=== PATIENT | male | born 1965 | race Caucasian/White ===

== ENCOUNTER 2020-12-17 16:29 | Emergency (ER) | payer BC ==
[~2020-12-17] VITALS: Ht 167.6 cm; Wt 90.7 kg
== END 2020-12-17 17:38 | disposition home or self-care (01) ==
LOC: ED 16:29
DX: S01.312A Laceration without foreign body of left ear, initial encounter (principal); F22 Delusional disorders; W22.8XXA Striking against or struck by other objects, initial encounter
CPT/HCPCS: 12011; 99284-25; J3486